=== PATIENT | female | born 1960 | race Two or more races ===

== ENCOUNTER 2025-01-04 19:22 | Emergency (ER) | payer MEDICARE, MEDICAID, SELFPAY ==
--- NOTE | 2025-01-04 19:23 | ED_ITS ---
HPI - Skin/Abscess/Foreign Bdy General Chief complaint: Skin/Abscess/Foreign Body Stated complaint: Skin Irritattion Time Seen by Provider: 01/04/25 19:22 Source: patient Mode of arrival: ambulatory Limitations: no limitations History of Present Illness HPI narrative: Brissa is a 64-year-old female patient presenting to the clinic today with complaints of a left upper back pain x1 day. She reports symptoms started yesterday around 7:00 p.m. States it is a burning/sharp pain that comes and goes. Rates her pain a 6/10 when it occurs. Denies any rash to her back. History hypertension, high cholesterol, cardiac stent, and GERD. Denies any chest pain or shortness of breath. Related Data Home Medications ?Medication ?Instructions ?Recorded ?Confirmed ?Last Taken ?Type atorvastatin 10 mg tablet mg 01/04/25 Unknown History metoprolol succinate 25 mg mg PO 01/04/25 Unknown History tablet,extended release 24 hr telmisartan 40 mg tablet mg 01/04/25 Unknown History Review of Systems Review of Systems: Pertinent positives per HPI. Patient denies any fever, chills, headache, visual changes, dizziness, cough, runny nose, sore throat, shortness of breath, chest pain, palpitations, nausea, vomiting, diarrhea, constipation, abdominal pain, or any urinary issues. PMFSH Comments At the time of my signature, I reviewed and agree with the nursing past medical, surgical, social, and family history. There is no relevant family history pertinent to the patient complaint. Exam Narrative: General: Well-developed, well nourished, in no apparent distress Head: Normocephalic, atraumatic. Cardio: Regular rate and rhythm, s1 and s2 normal, no murmur appreciated. Resp: Clear to auscultation bilaterally, no rhonchi, rales, wheezing or rubs. Integumentary: [place], warm, and dry, intact without lesion, no rashes. Tender to palpation over the rhomboid musculature Course Course Emergency Course: Portions of this record may have been created with voice recognition software. Level of Care: Express Care Visit Vital Signs Vital signs: Vital Signs Temperature 36.1 C L 01/04/25 19:33 Pulse Rate 70 01/04/25 19:33 Respiratory Rate 16 01/04/25 19:33 Blood Pressure 143/83 H 01/04/25 19:33 Pulse Oximetry 99 01/04/25 19:33 Oxygen Delivery Room Air 01/04/25 19:33 Temperature 36.1 C L 01/04/25 19:33 Pulse Rate 70 01/04/25 19:33 Respiratory Rate 16 01/04/25 19:33 Blood Pressure 143/83 H 01/04/25 19:33 Pulse Oximetry 99 01/04/25 19:33 Oxygen Delivery Room Air 01/04/25 19:33 Vital signs reviewed MDM - Skin/Abscess/Foreign Bdy MDM Narrative Medical decision making narrative: At the time of visit patient is resting comfortably on the exam table. Patient appears to be nontoxic. EKG: EKG shows normal sinus rhythm with heart rate 67 beats per minute no ST elevation, depression, or T-wave inversion noted. Plan: I suspect patient has muscle strain/paresthesias to the left upper back. No obvious rash at this time. EKG normal in the clinic. Prescription for Medrol Dosepak was sent to the pharmacy. Supportive measures were discussed with the patient and they voiced understanding discharge instructions and agrees to treatment plan. Return precautions reviewed Differential Diagnosis Differential diagnosis: Likely abscess of skin or subcutaneous tissue, viral exanthem, dermatophytosis, urticaria, herpes zoster, allergic reaction to drug, cellulitis, eczema, insect bites, impetigo and contact dermatitis ECG Data EKG #1: Attestation: I personally reviewed and interpreted this ECG as follows: ECG completion date: 01/04/25 ECG completion time: 19:52 Prior ECG tracings: not available for review Interpretation: EKG shows normal sinus rhythm with heart rate of 67 beats per minute without ST elevation, depression, or T-wave inversion. ID interval is 139 milliseconds, QRS durations 87 milliseconds, QT-QTC is 405-421 milliseconds, P-R-T axis is 21 -1 4 Discharge Plan Discharge Clinical Impression: Muscle strain, Paresthesia Patient Disposition: Home Condition: Stable Instructions: Antibiotic Form, Muscle Strain (ED), Paresthesia (ED) Additional Instructions: EKG shows normal sinus rhythm with heart rate of 67 beats per minute. Continue current medications as prescribed Take Medrol Dosepak as prescribed May take Tylenol additionally as needed for pain May apply Aspercreme, blue emu, or lidocaine to the affected area to help alleviate pain Follow-up with your primary care doctor and 3-5 days if symptoms persist Go to the emergency room if symptoms worsen Patient Language: Mongolian Prescriptions: New methylprednisolone [Medrol (Ronni)] 4 mg tablets,dose pack See Rx Instructions PO .COMPLEX Qty: 21 0RF Rx Instructions: orally per package directions No Action atorvastatin 10 mg tablet telmisartan 40 mg tablet metoprolol succinate 25 mg tablet extended release 24 hr PO Follow-up/Referrals: UNKNOWN,DOCTOR [Non-Staff] - Time of Disposition: 19:55 Quality NIHSS Nursing Documentation ED NIHSS nursing documentation: reviewed/agree
[2025-01-04 19:33] VITALS: BP 143/83; PULSE 70; RESP 16; TEMP 36.1; O2SAT 99
--- NOTE | 2025-01-04 19:43 | ECG_ITS ---
Test Date: 2025-01-04 19:52:16 Measurements Intervals [place] Rate: 67 P: 21 VT: 139 QRS: -1 QRSD: 87 T: 4 QT: 405 QTc: 429 Interpretive Statements SINUS RHYTHM NONSPECIFIC ST AND T WAVE ABNORMALITY No previous ECG available for comparison Electronically Signed On 01-05-2025 15:03:36 CDT by [place] M.D.
== END 2025-01-04 19:55 | disposition home or self-care (01) ==
PROVIDERS: Emergency Provider Nurse Practitioner Family
DX: S29.012A Strain of muscle and tendon of back wall of thorax, initial encounter (principal); X58.XXXA Exposure to other specified factors, initial encounter; R20.2 Paresthesia of skin; I10 Essential (primary) hypertension; E78.00 Pure hypercholesterolemia, unspecified; K21.9 Gastro-esophageal reflux disease without esophagitis; Z95.5 Presence of coronary angioplasty implant and graft
CPT/HCPCS: 93005; 99203; G0463